=== PATIENT | female | born 1960 | race Caucasian/White ===

== ENCOUNTER 2018-02-05 12:01 | Inpatient (IN) | payer OTHER ==
[2018-02-05 13:19] LABS: ADD MAN DIFF? NO
[2018-02-05] MEDS: HYDROmorphONE 1 MG/ML SYG IV (13:26)
[2018-02-05] MEDS: ONDANSETRON 4 MG INJ IV (13:26)
[2018-02-05] MEDS: SOD CHLORIDE 0.9% 1,000 ML IV (13:27)
[2018-02-05 13:41] LABS: ALANINE AMINOTRANSFERASE 30 IU/L (13-69); ALBUMIN 3.6 g/dl (3.3-4.9); ALBUMIN/GLOBULIN RATIO 1.28; ALKALINE PHOSPHATASE 115 IU/L (42-121); ANION GAP 14 (8-16); ASPARTATE AMINO TRANSFERASE 20 IU/L (15-46); BILIRUBIN,INDIRECT 0.4 mg/dl (0-1.1); BILIRUBIN,TOTAL 0.4 mg/dl (0.2-1.3); BLOOD UREA NITROGEN 16 mg/dl (7-20); CARBON DIOXIDE 28 mmol/L (21-31); CHLORIDE 102 mmol/L (97-110); GLUCOSE 151 mg/dl (70-220); LIPASE 101 U/L (23-300); POTASSIUM 4.1 mmol/L (3.5-5.1); SODIUM 140 mmol/L (135-144); TOTAL PROTEIN 6.4 g/dl (6.1-8.1)
[2018-02-05 13:53] LABS: WHITE BLOOD COUNT 7.2 10^3/ul (4.8-10.8)
[2018-02-05 13:53] LABS: BASOPHIL # 0.1 10^3/ul (0.0-0.1); BASOPHILS % 0.7 % (0.0-2.0); EOSINOPHILS # 0.5 10^3/ul (0.0-0.5); EOSINOPHILS % 7.3 % (0.0-7.0); HEMATOCRIT 43.3 % (37.0-47.0); HEMOGLOBIN 14.2 g/dl (12.0-16.0); IMMATURE GRANS #M 0.05 10^3/ul; IMMATURE GRANS % (M) 0.7 %; MEAN CORPUSCULAR HEMOGLOBIN 27.8 pg (29.0-33.0); MEAN CORPUSCULAR HGB CONC 32.8 g/dl (32.0-37.0); MEAN CORPUSCULAR VOLUME 84.7 fl (82.0-101.0); MEAN PLATELET VOLUME 10.9 fl (7.4-10.4); MONOCYTE # 0.3 10^3/ul (0.3-0.9); MONOCYTES % 4.7 % (0.0-11.0); NEUTROPHIL # 4.3 10^3/ul (1.6-7.5); NEUTROPHILS % 59.6 % (39.0-77.0); PLATELET COUNT 279 10^3/UL (140-415); RED BLOOD COUNT 5.11 10^6/ul (4.20-5.40); RED CELL DISTRIBUTION WIDTH 12.1 % (11.5-14.5)
[2018-02-05] MEDS ORDERED: ACETAMINOPHEN 325 MG TAB PO ×2 (18:00)
[2018-02-05] MEDS ORDERED: DOCUSATE SODIUM 100 MG CAP PO (18:00)
[2018-02-05] MEDS ORDERED: MAGNESIUM HYDROXIDE 30ML CUP PO (18:00)
[2018-02-05] MEDS ORDERED: NACL 0.9% 3 ML SYG IV (18:00)
[2018-02-05] MEDS ORDERED: ONDANSETRON 4 MG INJ IV ×2 (18:00)
[2018-02-05] MEDS ORDERED: morphine 2 MG INJ IV (18:00)
[2018-02-05 18:22] LABS: HEMOGLOBIN A1C 11.6 % (0-5.9)
[2018-02-05] MEDS: PROCHLORPERAZINE 10 MG INJ IV (19:18)
[2018-02-05] MEDS ORDERED: GLUCOSE GEL 15 GRAM TUBE BUCCAL (20:00)
[2018-02-05] MEDS ORDERED: GLUCOSE GEL 15 GRAM TUBE PO ×2 (20:00)
[2018-02-05] MEDS ORDERED: GLUCAGON 1 MG INJ IM (20:00)
[2018-02-05] MEDS ORDERED: DEXTROSE 50% 50 ML SYRINGE IV ×2 (20:00)
[2018-02-05] MEDS ORDERED: RANITIDINE 150 MG TAB PO (21:00)
[2018-02-05] MEDS: PIPER-TAZO 3.375 GM IV (PMX) 100 ML IVPB ×2 (21:18→21:42)
[2018-02-05] MEDS: DEXTROSE 5%-0.45% NACL 1,000 ML IV (21:38)
[2018-02-05] MEDS: INSULIN ASPART [NOVOLOG] 3 ML PEN SC (21:39)
[2018-02-05] MEDS: FAMOTIDINE 20 MG INJ IV (21:42)
[2018-02-06 05:22] LABS: ADD MAN DIFF? NO
[2018-02-06 05:24] LABS: WHITE BLOOD COUNT 7.8 10^3/ul (4.8-10.8)
[2018-02-06 05:24] LABS: BASOPHILS % 0.5 % (0.0-2.0); EOSINOPHILS # 0.3 10^3/ul (0.0-0.5); EOSINOPHILS % 3.5 % (0.0-7.0); HEMATOCRIT 39.2 % (37.0-47.0); HEMOGLOBIN 13.2 g/dl (12.0-16.0); IMMATURE GRANS #M 0.03 10^3/ul; IMMATURE GRANS % (M) 0.4 %; LYMPHOCYTES # 1.8 10^3/ul (0.8-2.9); LYMPHOCYTES % 23.1 % (15.0-51.0); MEAN CORPUSCULAR HEMOGLOBIN 28.3 pg (29.0-33.0); MEAN CORPUSCULAR HGB CONC 33.7 g/dl (32.0-37.0); MEAN CORPUSCULAR VOLUME 84.1 fl (82.0-101.0); MONOCYTE # 0.4 10^3/ul (0.3-0.9); MONOCYTES % 4.5 % (0.0-11.0); NEUTROPHIL # 5.3 10^3/ul (1.6-7.5); PLATELET COUNT 254 10^3/UL (140-415); RED BLOOD COUNT 4.66 10^6/ul (4.20-5.40); RED CELL DISTRIBUTION WIDTH 12.3 % (11.5-14.5)
[2018-02-06] MEDS: PIPER-TAZO 3.375 GM IV (PMX) 100 ML IVPB ×2 (05:42→17:08)
[2018-02-06 05:54] LABS: MAGNESIUM 1.8 mg/dl (1.7-2.5)
[2018-02-06 05:58] LABS: ALANINE AMINOTRANSFERASE 27 IU/L (13-69); ALBUMIN 2.9 g/dl (3.3-4.9); ALBUMIN/GLOBULIN RATIO 1.11; ALKALINE PHOSPHATASE 78 IU/L (42-121); ANION GAP 11 (8-16); ASPARTATE AMINO TRANSFERASE 19 IU/L (15-46); BILIRUBIN,INDIRECT 0.5 mg/dl (0-1.1); BILIRUBIN,TOTAL 0.5 mg/dl (0.2-1.3); BLOOD UREA NITROGEN 12 mg/dl (7-20); CALCIUM 8.4 mg/dl (8.4-10.2); CARBON DIOXIDE 28 mmol/L (21-31); CHLORIDE 105 mmol/L (97-110); GLUCOSE 162 mg/dl (70-220); POTASSIUM 3.6 mmol/L (3.5-5.1); SODIUM 140 mmol/L (135-144); TOTAL PROTEIN 5.5 g/dl (6.1-8.1)
[2018-02-06] MEDS ORDERED: ONDANSETRON 4 MG INJ (07:00)
[2018-02-06] MEDS: INSULIN ASPART [NOVOLOG] 3 ML PEN SC ×4 (07:50→20:26)
[2018-02-06] MEDS: DEXTROSE 5%-0.45% NACL 1,000 ML IV (08:50)
[2018-02-06] MEDS: BUMETANIDE 1 MG TAB PO (08:56)
[2018-02-06] MEDS: BENAZEPRIL 40 MG TAB PO (08:56)
[2018-02-06] MEDS: FAMOTIDINE 20 MG INJ IV ×2 (09:00→20:22)
[2018-02-06] MEDS ORDERED: CEPASTAT LOZENGE MT (10:30)
[2018-02-06] MEDS: ALBUTEROL/IPRATROPIUM (NEB) 3 ML AMP HHN ×5 (11:16→20:00)
[2018-02-06] MEDS: GUAIFENESIN/DM (SR) TAB PO ×2 (11:30→20:22)
[2018-02-06] MEDS ORDERED: FENTAnyl 50 MCG/ML VIAL (11:48)
[2018-02-06] MEDS ORDERED: PROPOFOL 20 ML (11:49)
[2018-02-06] MEDS ORDERED: SUCCINYLCHOLINE CHLORIDE 100 MG/5 ML SYG IV (11:49)
[2018-02-06] MEDS ORDERED: LIDOCAINE 2% (SDV) 5 ML INJ (11:49)
[2018-02-06] MEDS ORDERED: ROCURONIUM 50 MG INJ (11:49)
[2018-02-06] MEDS ORDERED: MIDAZOLAM 1 MG/ML 2 ML INJ (11:49)
[2018-02-06] MEDS ORDERED: ROPIVACAINE 0.5 % 30 ML VIAL (11:49)
[2018-02-06] MEDS ORDERED: ACETAMINOPHEN 1000MG/100ML IV 100 ML (11:49)
[2018-02-06] MEDS ORDERED: DIPHENHYDRAMINE 50 MG INJ IV (12:00)
[2018-02-06] MEDS ORDERED: KETOROLAC 30 MG INJ IV (12:00)
[2018-02-06] MEDS ORDERED: FENTAnyl 50 MCG/ML VIAL IV ×2 (12:00)
[2018-02-06] MEDS ORDERED: MEPERIDINE 25 MG INJ IV (12:00)
[2018-02-06] MEDS ORDERED: IPRATROPIUM (NEB) 0.5 MG/2.5 ML AMP HHN (12:00)
[2018-02-06] MEDS ORDERED: LABETALOL HCL 20MG INJ IV (12:00)
[2018-02-06] MEDS ORDERED: HYDROmorphONE 1 MG/5 ML IV SYRINGE IV (12:00)
[2018-02-06] MEDS ORDERED: hydrALAzine 20 MG INJ IV (12:00)
[2018-02-06] MEDS ORDERED: HYDROCODONE/APAP (5/325) TAB PO (13:00)
[2018-02-06] MEDS ORDERED: morphine 2 MG INJ IV (13:00)
[2018-02-06] MEDS: BUPIVACAINE 0.5%/EPI (SDV) 30 ML INJ (13:16)
[2018-02-06] MEDS ORDERED: SUGAMMADEX SODIUM 200 MG/2 ML VIAL IV (13:22)
[2018-02-06] MEDS ORDERED: METOCLOPRAMIDE 10 MG INJ (13:23)
[2018-02-06] MEDS: HYDROmorphONE 1 MG/5 ML IV SYRINGE IV ×2 (14:08→14:21)
[2018-02-06] MEDS: ONDANSETRON 4 MG INJ IV ×2 (14:13→20:32)
[2018-02-06] MEDS: D5-NS + KCL 20 MEQ 1,000 ML IV ×2 (15:44→22:43)
[2018-02-06] MEDS: METOCLOPRAMIDE 10 MG INJ IV (18:46)
[2018-02-06] MEDS: KETOROLAC 30 MG INJ IV (18:55)
[2018-02-07] MEDS: PIPER-TAZO 3.375 GM IV (PMX) 100 ML IVPB ×2 (00:37→05:49)
[2018-02-07] MEDS: ALBUTEROL/IPRATROPIUM (NEB) 3 ML AMP HHN ×2 (01:09→09:07)
[2018-02-07] MEDS: KETOROLAC 30 MG INJ IV (01:26)
[2018-02-07] MEDS: METOCLOPRAMIDE 10 MG INJ IV (01:26)
[2018-02-07] MEDS: SOD CHLORIDE 0.9% 1,000 ML IV (02:23)
[2018-02-07] MEDS: ACETAMINOPHEN 325 MG TAB PO (03:26)
[2018-02-07 05:45] LABS: ADD MAN DIFF? NO
[2018-02-07 05:48] LABS: WHITE BLOOD COUNT 8.4 10^3/ul (4.8-10.8)
[2018-02-07 05:48] LABS: BASOPHILS % 0.4 % (0.0-2.0); EOSINOPHILS # 0.1 10^3/ul (0.0-0.5); EOSINOPHILS % 1.1 % (0.0-7.0); HEMATOCRIT 38.1 % (37.0-47.0); HEMOGLOBIN 12.5 g/dl (12.0-16.0); IMMATURE GRANS #M 0.04 10^3/ul; IMMATURE GRANS % (M) 0.5 %; LYMPHOCYTES # 1.4 10^3/ul (0.8-2.9); LYMPHOCYTES % 16.3 % (15.0-51.0); MEAN CORPUSCULAR HEMOGLOBIN 27.6 pg (29.0-33.0); MEAN CORPUSCULAR HGB CONC 32.8 g/dl (32.0-37.0); MEAN CORPUSCULAR VOLUME 84.1 fl (82.0-101.0); MEAN PLATELET VOLUME 11.1 fl (7.4-10.4); MONOCYTE # 0.5 10^3/ul (0.3-0.9); NEUTROPHIL # 6.4 10^3/ul (1.6-7.5); NEUTROPHILS % 75.7 % (39.0-77.0); PLATELET COUNT 232 10^3/UL (140-415); RED BLOOD COUNT 4.53 10^6/ul (4.20-5.40); RED CELL DISTRIBUTION WIDTH 12.4 % (11.5-14.5)
[2018-02-07] MEDS: IBUPROFEN 600 MG TAB PO (05:49)
[2018-02-07 06:13] LABS: ANION GAP 12 (8-16); BLOOD UREA NITROGEN 12 mg/dl (7-20); CALCIUM 8.2 mg/dl (8.4-10.2); CARBON DIOXIDE 25 mmol/L (21-31); CHLORIDE 107 mmol/L (97-110); CREATININE 0.61 mg/dl (0.44-1.00); GLUCOSE 191 mg/dl (70-220); POTASSIUM 3.5 mmol/L (3.5-5.1); SODIUM 140 mmol/L (135-144)
[2018-02-07] MEDS: ENOXAPARIN 40 MG/0.4 ML SYG SC (06:44)
[2018-02-07] MEDS: D5-NS + KCL 20 MEQ 1,000 ML IV (08:43)
[2018-02-07] MEDS: GUAIFENESIN/DM (SR) TAB PO (08:55)
[2018-02-07] MEDS: BUMETANIDE 1 MG TAB PO (08:55)
[2018-02-07] MEDS: FAMOTIDINE 20 MG INJ IV (08:55)
[2018-02-07] MEDS: BENAZEPRIL 40 MG TAB PO (08:56)
[2018-02-07] MEDS: INSULIN ASPART [NOVOLOG] 3 ML PEN SC (08:57)
[2018-02-07] MEDS ORDERED: ALBUTEROL/IPRATROPIUM (NEB) 3 ML AMP HHN (09:30)
== END 2018-02-07 11:50 | disposition home health service (06) | DRG 418 ==
LOC: MS1 20:14 → E/R 12:01 → MS3 17:38
PROC: 0FT44ZZ Resection of Gallbladder, Percutaneous Endoscopic Approach (ICD-10-PCS; principal; 2018-02-06 12:30)
DX: K80.10 Calculus of gallbladder with chronic cholecystitis without obstruction (principal); Z68.43 Body mass index [BMI] 50.0-59.9, adult; R11.2 Nausea with vomiting, unspecified; E11.9 Type 2 diabetes mellitus without complications; I10 Essential (primary) hypertension; F17.210 Nicotine dependence, cigarettes, uncomplicated; J45.909 Unspecified asthma, uncomplicated; E66.01 Morbid (severe) obesity due to excess calories; Z79.4 Long term (current) use of insulin
CPT/HCPCS: 36415; 71045; 76705; 78226; 80048; 80053; 82962; 83036; 83690; 83735; 85025; 88304; 94640; 94664; 96374; 96375; 99217; 99285-25

== ENCOUNTER 2018-09-16 07:09 | Day surgery (SDC) | payer OTHER ==
[~2018-09-16 07:09] MED LIST: CEFAZOLIN 1 GM INJ; DESFLURANE 15 MIN
[2018-09-16] MEDS: ACETAMINOPHEN 500 MG TAB PO (08:23)
[2018-09-16] MEDS ORDERED: PROVENTIL HFA 6.7GM INHALER (08:41)
[2018-09-16] MEDS ORDERED: ROCURONIUM 50 MG INJ (08:48)
[2018-09-16] MEDS ORDERED: MIDAZOLAM 1 MG/ML 2 ML INJ (08:48)
[2018-09-16] MEDS ORDERED: PROPOFOL 40 ML (08:48)
[2018-09-16] MEDS ORDERED: FENTAnyl 50 MCG/ML VIAL (08:48)
[2018-09-16] MEDS ORDERED: LIDOCAINE 2% (SDV) 5 ML INJ (08:48)
[2018-09-16] MEDS ORDERED: SUCCINYLCHOLINE CHLORIDE 100 MG/5 ML SYG IV (08:48)
[2018-09-16] MEDS ORDERED: METOCLOPRAMIDE 10 MG INJ (08:49)
[2018-09-16] MEDS ORDERED: FAMOTIDINE 20 MG INJ (08:49)
[2018-09-16] MEDS ORDERED: morphine (1 MG/ML) 10ML SYRINGE IV ×2 (09:30)
[2018-09-16] MEDS ORDERED: LABETALOL HCL 20MG INJ IV (09:30)
[2018-09-16] MEDS ORDERED: DIPHENHYDRAMINE 50 MG INJ IV (09:30)
[2018-09-16] MEDS ORDERED: ALBUTEROL 0.083% (NEB) 2.5 MG/3 ML AMP HHN (09:30)
[2018-09-16] MEDS ORDERED: MEPERIDINE 25 MG INJ IV (09:30)
[2018-09-16] MEDS ORDERED: FENTAnyl 50 MCG/ML VIAL IV (09:30)
[2018-09-16] MEDS ORDERED: HYDROmorphONE 1 MG/5 ML IV SYRINGE IV ×2 (09:30)
[2018-09-16] MEDS: ONDANSETRON 4 MG INJ IV (11:28)
[2018-09-16] MEDS: FENTAnyl 50 MCG/ML VIAL IV (11:28)
== END 2018-09-16 12:41 | disposition home or self-care (01) ==
LOC: SDS 07:09
DX: N84.0 Polyp of corpus uteri (principal); N95.0 Postmenopausal bleeding; E11.9 Type 2 diabetes mellitus without complications; E66.9 Obesity, unspecified; N39.0 Urinary tract infection, site not specified; R94.31 Abnormal electrocardiogram [ECG] [EKG]
CPT/HCPCS: 58558; 82962; 84703; 88305; 93005